=== PATIENT | female | born 1990 ===

== ENCOUNTER 2017-12-19 17:45 | Inpatient (IN) | payer SELFPAY ==
[2017-12-19 18:00] VITALS: BP 144/67; PULSE 114; RESP 20; TEMP 102.1; O2SAT 100
[2017-12-19] MEDS ORDERED: SODIUM CHLOR 0.9% 1000 ML INJ 1,000 ML IV SCH ×2 (22:24→23:35)
--- NOTE | 2017-12-19 22:27 | PD ---
HPI Chief Complaint: Abdominal Pain Time Seen by Provider: 22:18 Travel History International Travel<30 days: No Contact w/Intl Traveler<30days: No Traveled to known affect area: No History of Present Illness HPI This patient was examined in the presence of a female nurse. 26-year-old female presents for evaluation of abdominal pain. Symptoms started 5 days ago. She describes it as an aching pain in her lower abdomen which is constant, worse when walking or when having a bowel movement. She reports associated fevers, chills, nausea, dizziness when standing. She denies diarrhea, constipation, flank pain, dysuria, increased urinary frequency or hesitancy, vaginal bleeding or discharge, cough, congestion, sore throat. She is sexually active with approximately 10 new sexual partners in the past 2 months. She has no other complaints at this time. [facility] Past Medical History Medical History: Denies Significant Hx ?: Not LMP: 12/06/2017 Social History Alcohol Use: No Tobacco Use: Yes Substance Use: No Allergies-Medications (Allergen,Severity, Reaction): Coded Allergies: Sulfa (Sulfonamide Antibiotics) (Verified Allergy, Unknown, 12/19/17) Reported Meds & Prescriptions Reported Meds & Active Scripts Active No Active Prescriptions or Reported Medications Review of Systems Except as stated in HPI: all other systems reviewed are Neg Physical Exam Narrative GENERAL: Well-developed well-nourished female who is febrile and tachycardic in triage. SKIN: Warm and dry. HEAD: Atraumatic. Normocephalic. EYES: Pupils equal and round. No scleral icterus. No injection or drainage. ENT: No nasal bleeding or discharge. Mucous membranes pink and moist. NECK: Trachea midline. No JVD. CARDIOVASCULAR: Regular rate and rhythm. No murmur appreciated. RESPIRATORY: No accessory muscle use. Clear to auscultation. Breath sounds equal bilaterally. GASTROINTESTINAL: Abdomen soft, tender to palpation in bilateral lower quadrants without guarding. There is no CVA tenderness. MUSCULOSKELETAL: No obvious deformities. No clubbing. No cyanosis. No edema. NEUROLOGICAL: Awake and alert. No obvious cranial nerve deficits. Motor grossly within normal limits. Normal speech. PSYCHIATRIC: Appropriate mood and affect; insight and judgment normal. Data Data Last Documented VS Vital Signs Date Time Temp Pulse Resp B/P (MAP) Pulse Ox O2 Delivery O2 Flow Rate FiO2 12/19/17 18:00 102.1 114 20 144/67 (92) 100 Orders Orders Sepsis Workup Initiated (12/19/17 ) Complete Blood Count With Diff (12/19/17 18:03) Comprehensive Metabolic Panel (12/19/17 18:03) Lactic Acid Sepsis Protocol (12/19/17 18:03) Urinalysis - C+S If Indicated (12/19/17 18:03) Blood Culture (12/19/17 18:03) Ed Urine Pregnancytest Poc (12/19/17 22:24) Gc And Chlamydia Pcr (12/19/17 22:24) Wet Prep Profile (12/19/17 22:24) Ct Abd/Pel W Iv Contrast(Rout) (12/19/17 22:24) Iv Access Insert/Monitor (12/19/17:24) Morphine Inj (Morphine Inj) (12/19/17 22:30) Ondansetron Inj (Zofran Inj) (12/19/17 22:30) Sodium Chlor 0.9% 1000 Ml Inj (Ns 1000 M (12/19/17 22:24) Lipase (12/19/17 22:50) Acetaminophen (Tylenol) (12/19/17 23:45) Sodium Chlor 0.9% 1000 Ml Inj (Ns 1000 M (12/19/17 23:35) Urine Culture (12/19/17 23:36) Cefoxitin Inj (Mefoxin Inj) (12/20/17 00:15) Doxycycline (Vibratab) (12/20/17 00:15) Metronidazole (Flagyl) (12/20/17 00:15) Iohexol 350 Inj (Omnipaque 350 Inj) (12/20/17 00:14) Admit Order (Ed Use Only) (12/20/17 00:34) Us Pelvis Comp W Dop Transvag (12/20/17 23:10) Labs Laboratory Tests Test 12/19/17 22:50 12/19/17 23:20 12/19/17 23:36 White Blood Count 25.9 TH/MM3 Red Blood Count 4.25 MIL/MM3 Hemoglobin 13.1 GM/DL Hematocrit 38.3 % Mean Corpuscular Volume 90.1 FL Mean Corpuscular Hemoglobin 30.9 PG Mean Corpuscular Hemoglobin Concent 34.3 % Red Cell Distribution Width 13.8 % Platelet Count 319 TH/MM3 Mean Platelet Volume 7.6 FL Neutrophils (%) (Auto) 84.8 % Lymphocytes (%) (Auto) 5.6 % Monocytes (%) (Auto) 9.2 % Eosinophils (%) (Auto) 0.2 % Basophils (%) (Auto) 0.2 % Neutrophils # (Auto) 22.0 TH/MM3 Lymphocytes # (Auto) 1.4 TH/MM3 Monocytes # (Auto) 2.4 TH/MM3 Eosinophils # (Auto) 0.0 TH/MM3 Basophils # (Auto) 0.0 TH/MM3 CBC Comment AUTO DIFF Differential Total Cells Counted 100 Neutrophils % (Manual) 74 % Band Neutrophils % 7 % Lymphocytes % 7 % Monocytes % 12 % Neutrophils # (Manual) 21.0 TH/MM3 Differential Comment FINAL DIFF MANUAL Toxic Granulation 1+ Toxic Vacuolation PRESENT Platelet Estimate NORMAL Platelet Morphology Comment NORMAL Red Cell Morphology Comment NORMAL Blood Urea Nitrogen 7 MG/DL Creatinine 0.81 MG/DL Random Glucose 105 MG/DL Total Protein 8.0 GM/DL Albumin 3.6 GM/DL Calcium Level 8.9 MG/DL Alkaline Phosphatase 91 U/L Aspartate Amino Transf (AST/SGOT) 10 U/L Alanine Aminotransferase (ALT/SGPT) 20 U/L Total Bilirubin 0.6 MG/DL Sodium Level 136 MEQ/L Potassium Level 3.2 MEQ/L Chloride Level 102 MEQ/L Carbon Dioxide Level 25.1 MEQ/L Anion Gap 9 MEQ/L Estimat Glomerular Filtration Rate 86 ML/MIN Lactic Acid Level 1.5 mmol/L Lipase 67 U/L Clue Cells (Wet Prep) NONE SEEN Vaginal Trichomonas (Wet Prep) PRESENT Vaginal Yeast (Wet Prep) NONE SEEN Chlamydia trachomatis DNA (PCR) NOT DETECTED Neisseria gonorrhoeae DNA (PCR) NOT DETECTED Urine Color YELLOW Urine Turbidity CLOUDY Urine pH 6.0 Urine Specific [place] 1.032 Urine Protein 30 mg/dL Urine Glucose (UA) NEG mg/dL Urine Ketones NEG mg/dL Urine Occult Blood SMALL Urine Nitrite NEG Urine Bilirubin NEG Urine Urobilinogen 2.0 MG/DL Urine Leukocyte Esterase MOD Urine RBC 39 /hpf Urine WBC 24 /hpf Urine Squamous Epithelial Cells 15 /hpf Urine Amorphous Sediment RARE Urine Mucus MANY /lpf Microscopic Urinalysis Comment CATH-CULTURE IND MDM Medical Decision Making Medical Screen Exam Complete: Yes Emergency Medical Condition: Yes Medical Record Reviewed: Yes Differential Diagnosis Pelvic inflammatory disease, tubo-ovarian abscess, appendicitis, diverticulitis , colitis, pyelonephritis, cystitis Narrative Course Plan is for lab work, blood cultures, urinalysis, pelvic examination, CT abdomen and pelvis. She will be given IV fluids, Zofran, morphine. Pelvic examination reveals cervical motion tenderness, bilateral adnexal tenderness, mucopurulent drainage from the cervical loss consistent with pelvic inflammatory disease. The patient was given doxycycline, Flagyl, cefoxitin. 2 L of IV fluids were provided. Lab work has been reviewed. WBC count is 25.9 with 7% band neutrophils, CMP reveals a potassium of 3.2, urinalysis reveals moderate leukocytes and RBCs, significant contaminant with 15 squamous epithelial cells, wet prep is positive for trichomonas. CT abdomen and pelvis reveals CONCLUSION: 1. Greater than a centimeter low density, probably fluid, collection in the anterior right adnexa with free fluid tracking to the cecum and in the cul-de- sac and with induration of the fat about the lower peritoneum. The location suggests that this is ovarian in origin, possibly representing an abscess. The appendix is obscured by fluid tracking to the cecum and cannot assess for the presence or absence of appendicitis stop Clinical examination and history are consistent with pelvic inflammatory disease and tubo-ovarian abscess. I discussed with the on-call stationary engineer apprentice Dr. Paulino to admit the patient to her service. Discussed the results with the patient. Sepsis Criteria SIRS Criteria (2 or more): Temp > 100.9 or < 96.8, Heart rate over 90, WBC > 51559, < 4000 or > 10% bands Sepsis Criteria (SIRS+source): Infect source susp/known Diagnosis Primary Impression: Sepsis Additional Impressions: Tubo-ovarian abscess Pelvic inflammatory disease Admitting Information Admitting Physician Requests: Admit Scripts No Active Prescriptions or Reported Meds Jarod Villareal Dec 19, 2017 22:27
[2017-12-19] MEDS ORDERED: ONDANSETRON HCL 4 MG/2 ML VIAL IVP ONE (22:30)
[2017-12-19] MEDS ORDERED: MORPHINE SULFATE 4 MG/ML INJ IV PUSH ONE (22:30)
[2017-12-19 23:23] LABS: BASOPHIL % 0.2 % (0.0-2.0); EOSINOPHIL % 0.2 % (0.0-4.0); HEMATOCRIT 38.3 % (35.0-46.0); HEMOGLOBIN 13.1 GM/DL (11.6-15.3); LYMPH % 5.6 % (9.0-44.0); LYMPHOCYTE # 1.4 TH/MM3 (1.0-4.8); MEAN CELL VOLUME 90.1 FL (80.0-100.0); MEAN CORPUSCULAR HEMOGLOBIN 30.9 PG (27.0-34.0); MEAN CORPUSCULAR HGB CONC 34.3 % (32.0-36.0); MEAN PLATELET VOLUME 7.6 FL (7.0-11.0); MONO % 9.2 % (0.0-8.0); MONOCYTE # 2.4 TH/MM3 (0-0.9); NEUT % 84.8 % (16.0-70.0); PLATELET COUNT 319 TH/MM3 (150-450); RED BLOOD COUNT 4.25 MIL/MM3 (4.00-5.30); RED CELL DISTRIBUTION WIDTH 13.8 % (11.6-17.2); WHITE BLOOD COUNT 25.9 TH/MM3 (4.0-11.0)
[2017-12-19 23:28] LABS: ALBUMIN 3.6 GM/DL (3.4-5.0); AST (GOT) 10 U/L (15-37); BICARBONATE 25.1 MEQ/L (21.0-32.0); BLOOD UREA NITROGEN 7 MG/DL (7-18); CALCIUM 8.9 MG/DL (8.5-10.1); CHLORIDE 102 MEQ/L (98-107); CREATININE 0.81 MG/DL (0.50-1.00); GLOMERULAR FILTRATION RATE 86 ML/MIN (>89); GLUCOSE,RANDOM 105 MG/DL (74-106); SODIUM (NA) 136 MEQ/L (136-145)
[2017-12-19 23:29] LABS: ALT (GPT) 20 U/L (10-53)
[2017-12-19 23:31] LABS: ALKALINE PHOSPHATASE 91 U/L (45-117); TOTAL BILIRUBIN ADULT 0.6 MG/DL (0.2-1.0)
[2017-12-19] MEDS ORDERED: ACETAMINOPHEN 325 MG TAB PO ONE (23:45)
[2017-12-20 00:03] LABS: BANDS 7 % (0-6); LYMPHOCYTES 7 % (9-44); MONOCYTES 12 % (0-8); POLYS (SEG NEUTROPHILS) 74 % (16-70)
[2017-12-20 00:05] LABS: TOXIC GRANULATION 1+ (NORMAL); TOXIC VACUOLATION PRESENT (NONE SEEN)
[2017-12-20 00:08] LABS: AMORPHOUS SEDIMENT, URINE RARE; BILIRUBIN, URINE NEG (NEG); BLOOD, URINE SMALL (NEG); GLUCOSE,URINE NEG (NEG); KETONE, URINE NEG (NEG); MUCUS URINE MANY /lpf (OCC); NITRITE,URINE NEG (NEG); SQUAMOUS EPITHELIAL CELL URINE 15 /hpf (0-5); URINE COLOR YELLOW (YELLW/STRAW); URINE LEUKOCYTE ESTERASE MOD (NEG)
[2017-12-20] MEDS ORDERED: IOHEXOL 350 MG/ML 10 ML VIAL (for RAD DIAG) IVCONTRAST ONE (00:14)
[2017-12-20] MEDS ORDERED: metroNIDAZOLE 500 MG TAB PO ONE (00:15)
[2017-12-20] MEDS ORDERED: DOXYCYCLINE HYCLATE 100 MG TAB PO ONE (00:15)
[2017-12-20] MEDS ORDERED: ceFOXitin INJ 2 GM in SODIUM CHLORIDE 0.9% INJ 100 ML IV ONE (00:15)
--- NOTE | 2017-12-20 00:26 | RADRPT ---
EXAM DATE/TIME: 12/20/2017 00:05 [facility] COMPARISON: No previous studies available for comparison. INDICATIONS : Lower abdominal pain with dysuria and constipation. IV CONTRAST: 100 cc Omnipaque 350 (iohexol) IV ORAL CONTRAST: No oral contrast ingested. RADIATION DOSE: 7.37 CTDIvol (mGy) MEDICAL HISTORY : None SURGICAL HISTORY : None. ENCOUNTER: Initial ACUITY: 4 - 6 days PAIN SCALE: 9/10 LOCATION: Bilateral lower quadrant TECHNIQUE: Volumetric scanning of the abdomen and pelvis was performed. Using automated exposure control and ad justment of the mA and/or kV according to patient size, radiation dose was kept as low as reasonably achievable to obtain optimal diagnostic quality images. DICOM format image data is available electro nically for review and comparison. FINDINGS: LOWER LUNGS: The visualized lower lungs are clear. LIVER: Homogeneous density without lesion. There is no dilation of the biliary tree. No calcified gallston es. SPLEEN: Normal size without lesion. PANCREAS: Within normal limits. KIDNEYS: Normal in size and shape. There is no mass, stone or hydronephrosis. ADRENAL GLANDS: Within normal limits. VASCULAR: There is no aortic aneurysm. BOWEL/MESENTERY: The stomach, small bowel, and colon demonstrate no acute abnormality. There is no free intraperitone al air or fluid. ABDOMINAL WALL: Within normal limits. RETROPERITONEUM: There is no lymphadenopathy. BLADDER: No wall thickening or mass. REPRODUCTIVE: Abnormal. The uterus is anteverted. The right and superior of the uterus, there is a large low dens ity smooth margin lesion measuring 8.1 x [address] density of 10 Hounsfield units. This appears to be ovarian in origin. No associated calcification. No air within the fluid collection. There i s some induration of the mesenteric fat or abdomen. There is free fluid in the cul-de-sac measuring 2.7 cm. There is also some free fluid tracking into the right lower quadrant, obscuring the inferior margin of the cecum. The appendix is not identified, and may be within area of fluid. INGUINAL: There is no lymphadenopathy or hernia. MUSCULOSKELETAL: Within normal limits for patient age. CONCLUSION: 1. Greater than a centimeter low density, probably fluid, collection in the anterior right adnexa wit h free fluid tracking to the cecum and in the cul-de-sac and with induration of the fat about the low er peritoneum. The location suggests that this is ovarian in origin, possibly representing an absces s. The appendix is obscured by fluid tracking to the cecum and cannot assess for the presence or abs ence of appendicitis stop Mike Duran MD on December 20, 2017 at 0:19 Board Certified Radiologist. This report was verified electronically.
[2017-12-20] MEDS ORDERED: ONDANSETRON ODT 4 MG TAB PO PRN (00:45)
[2017-12-20] MEDS ORDERED: SODIUM CHLORIDE 0.9% FLUSH 10 ML FLUSH IV FLUSH PRN (00:45)
[2017-12-20] MEDS ORDERED: ACETAMINOPHEN 325 MG TAB PO PRN (00:45)
[2017-12-20] MEDS ORDERED: IBUPROFEN 600 MG TAB PO PRN (00:45)
--- NOTE | 2017-12-20 01:20 | RADRPT ---
EXAM DATE/TIME: 12/20/2017 00:27 [facility] COMPARISON: CT ABDOMEN & PELVIS W CONTRAST, December 20, 2017, 0:05. INDICATIONS : Pelvic pain, evaluate for abscess. MEDICAL HISTORY : Pelvic pain. SURGICAL HISTORY : None. ENCOUNTER: Initial ACUITY: 1 day PAIN SCORE: 3/10 LOCATION: Bilateral pelvis MEASUREMENTS: UTERUS: 9.2 x 5.6 x 3.4 cm ENDOMETRIAL STRIPE: 8 mm RIGHT OVARY: 9.8 x 9.7 x 8.4 cm LEFT OVARY: 4.0 x 3.0 x 2.2 cm FINDINGS: UTERUS: The myometrium has homogeneous echotexture without mass. The endometrial stripe has a homogeneous ech otexture. RIGHT OVARY: There is a dominant cystic structure measuring 7.8 x 7.4 cm which appears to be ovarian in origin. T here are homogeneous low level specular echoes within. On color Doppler there is some mild flow abou t the periphery anteriorly. There is some free fluid tracking about the right adnexa. LEFT OVARY: Ovary contains no mass or significant cystic lesion. MISCELLANEOUS: No free fluid in the cul-de-sac. CONCLUSION: 1. Dominant cystic abnormality in the right adnexa appears to be ovarian in origin and measures in ex cess of 7.8 cm. There is some mild flow about the periphery. Differential considerations include a large ovarian cyst and adnexal abscess. 2. There is free fluid about the right adnexa. No free fluid in the cul-de-sac. The left adnexa is grossly unremarkable. Mike Duran MD on December 20, 2017 at 1:15 Board Certified Radiologist. This report was verified electronically.
[2017-12-20] MEDS: SODIUM CHLOR 0.45% 1000 ML INJ 1,000 ML IV SCH ×2 (02:08→17:56)
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
[2017-12-20] MEDS ORDERED: ZOLPIDEM TARTRATE 5 MG TAB PO PRN (02:15)
[2017-12-20 02:20] VITALS: BP 116/61; PULSE 91; RESP 18; TEMP 100.1; O2SAT 98
[2017-12-20 02:38] LABS: MAGNESIUM 1.8 MG/DL (1.5-2.5)
[2017-12-20] MEDS ORDERED: DOXYCYCLINE INJ 100 MG in SODIUM CHLORIDE 0.9% INJ 100 ML IV SCH (03:00)
[2017-12-20] MEDS: metroNIDAZOLE 500 MG INJ 100 ML IV SCH ×4 (03:01→17:59)
[2017-12-20] MEDS: POTASSIUM CHLOR 20 MEQ PREMIX 100 ML IV SCH ×2 (03:54→06:08)
[2017-12-20 04:54] VITALS: BP 118/58; PULSE 96; RESP 16; O2SAT 98
[2017-12-20] MEDS ORDERED: SODIUM CHLORIDE 0.9% 100 ML BAG ONE ×5 (06:00→18:00)
[2017-12-20] MEDS: SODIUM CHLORIDE 0.9% FLUSH 10 ML FLUSH IV FLUSH SCH ×2 (09:00→22:06)
[2017-12-20] MEDS: ceFOXitin INJ 2,000 GM in SODIUM CHLORIDE 0.9% INJ 100 ML IV SCH ×4 (09:09→23:11)
[2017-12-20 10:06] LABS: RPR SCREEN FOR REFLEX NON-REACTIVE (NON-REACTVE)
[2017-12-20 11:08] VITALS: PULSE 96; RESP 15; TEMP 100.6; O2SAT 97
[2017-12-20 11:28] LABS: INTERNATIONAL NORMALIZED RATIO 1.1 RATIO; PROTHROMBIN TIME - PATIENT 11.1 SEC (9.8-11.6)
[2017-12-20] MEDS: ONDANSETRON HCL 4 MG/2 ML VIAL IV PUSH PRN (12:26)
[2017-12-20] MEDS: MORPHINE SULFATE 4 MG/ML INJ IV PUSH PRN ×2 (12:26→14:28)
[2017-12-20] MEDS ORDERED: MIDAZOLAM HCL 2 MG/2 ML VIAL ONE ×2 (12:46→13:19)
--- NOTE | 2017-12-20 15:27 | RADRPT ---
EXAM DATE/TIME: 12/20/2017 13:08 [place] COMPARISON: No previous studies available for comparison. INDICATIONS : Tubo-ovarian abscess. SEDATION TIME: 30 MEDICATION(S): 1.) 3 mg midazolam (Versed) IV 2.) 150 mcg fentanyl (Sublimaze) IV DEVICE(S): 1.) 8 Fr Skater FLUID: Total volume of 300 cc of cloudy, yellow fluid was removed. Fluid was sent for laboratory ordered studies. MEDICAL HISTORY : None. SURGICAL HISTORY : None. ENCOUNTER: Initial ACUITY: 1 day PAIN SCORE: 0/10 LOCATION: pelvis PROCEDURE: 1.) Conscious sedation with continuous EKG and oximetry monitoring. PROCEDURE : 1. CT guided drainage of the right tubo-ovarian abscess 2. Conscious sedation with continuous EKG and oximetry monitoring. The risks, benefits and alternatives to the procedure were explained and verbal and written consent w as obtained. Using automated exposure control and adjustment of the mA and/or kV according to patient size, radiation dose was kept as low as reasonably achievable to obtain optimal diagnostic quality i mages. The site was prepped in sterile fashion. Full sterile technique was used, including cap, ma sk, sterile gloves and gown and a large sterile sheet. Hand hygiene and 2% chlorhexidine and/or beta dine/alcohol prep was utilized per protocol for cutaneous antisepsis. The skin and subcutaneous tiss ues were infiltrated with local anesthetic solution. DICOM format image data is available electronic ally for review and comparison. Using CT guidance the prescribed site was localized. Drainage was performed using the prescribed cat heter The patient tolerated the procedure well and there were no complications. Conscious sedation was per formed with the prescribed dosages and duration as above in the presence of an independent trained ra diology nurse to assist in the monitoring of the patient. EKG and oximetry remained stable throughou t the procedure. The patient tolerated the procedure well and there were no complications. The patient was sent to pos t anesthesia recovery in stable condition. CONCLUSION: Uncomplicated CT guided drainage. Catrachito Clark MD on December 20, 2017 at 15:24 Board Certified Radiologist. This report was verified electronically.
[2017-12-20 18:58] VITALS: BP 119/69; PULSE 100; RESP 16; TEMP 102.2; O2SAT 96
[2017-12-20] MEDS: ACETAMINOPHEN/HYDROcodone 325 MG/5 MG TAB PO PRN (23:09)
[2017-12-20] MEDS: DOXYCYCLINE HYCLATE 100 MG TAB PO SCH (23:27)
[2017-12-21] VITALS: BP 121/69; PULSE 78; RESP 18; TEMP 98; O2SAT 98
[2017-12-21] MEDS: metroNIDAZOLE 500 MG INJ 100 ML IV SCH ×3 (01:20→18:01)
[2017-12-21] MEDS: MORPHINE SULFATE 4 MG/ML INJ IV PUSH PRN (03:53)
[2017-12-21] MEDS: ONDANSETRON HCL 4 MG/2 ML VIAL IV PUSH PRN (03:56)
[2017-12-21 04:00] VITALS: BP 112/63; PULSE 80; RESP 18; TEMP 99.2; O2SAT 97
[2017-12-21] MEDS ORDERED: SODIUM CHLORIDE 0.9% 100 ML BAG ONE ×4 (06:00→18:00)
[2017-12-21] MEDS: ceFOXitin INJ 2,000 GM in SODIUM CHLORIDE 0.9% INJ 100 ML IV SCH ×4 (06:24→23:05)
[2017-12-21] MEDS: SODIUM CHLOR 0.45% 1000 ML INJ 1,000 ML IV SCH ×2 (06:26→18:01)
[2017-12-21 07:58] LABS: BASOPHIL % 0.2 % (0.0-2.0); EOSINOPHIL # 0.1 TH/MM3 (0-0.4); EOSINOPHIL % 0.7 % (0.0-4.0); HEMATOCRIT 31.3 % (35.0-46.0); HEMOGLOBIN 10.6 GM/DL (11.6-15.3); LYMPH % 10.7 % (9.0-44.0); LYMPHOCYTE # 1.7 TH/MM3 (1.0-4.8); MEAN CELL VOLUME 90.6 FL (80.0-100.0); MEAN CORPUSCULAR HEMOGLOBIN 30.6 PG (27.0-34.0); MEAN CORPUSCULAR HGB CONC 33.8 % (32.0-36.0); MEAN PLATELET VOLUME 7.2 FL (7.0-11.0); MONO % 7.1 % (0.0-8.0); MONOCYTE # 1.1 TH/MM3 (0-0.9); NEUT % 81.3 % (16.0-70.0); PLATELET COUNT 251 TH/MM3 (150-450); RED BLOOD COUNT 3.46 MIL/MM3 (4.00-5.30); RED CELL DISTRIBUTION WIDTH 13.4 % (11.6-17.2)
[2017-12-21 08:00] VITALS: BP_SYST 111; BP_SYST 119; BP_DIAS 64; BP_DIAS 66; PULSE 72; PULSE 82; RESP 18; TEMP 98.9; TEMP 99.7; O2SAT 97; O2SAT 98
[2017-12-21 08:18] LABS: BICARBONATE 24.5 MEQ/L (21.0-32.0); CALCIUM 8.2 MG/DL (8.5-10.1); CREATININE 0.83 MG/DL (0.50-1.00)
--- NOTE | 2017-12-21 08:40 | HHI.PR ---
Subjective Remarks Hospital day 2 36 hours in to IV antibiotic therapy of Mefoxin/doxycycline/ Flagyl , T-max-102.2 at 7 PM last night Patient has less pressure in the abdomen and pelvis after drainage by interventional radiology yesterday of 300 cc of pus, however she still has she describes intense pain when she moves she is not too bad just laying in bed but when she moves or goes to the bathroom and tries to ambulate has a lot of pain which is worse instead of better, she still has an indwelling drain that this morning at 150 cc of a yellow serous fluid Objective Vital Signs Date Time Temp Pulse Resp B/P (MAP) Pulse Ox O2 Delivery O2 Flow Rate FiO2 12/21/17 04:00 99.2 80 18 112/63 (79) 97 12/21/17 03:58 18 12/21/17 00:00 98.0 78 18 121/69 (86) 98 12/20/17 18:58 102.2 100 16 119/69 (86) 96 12/20/17 11:08 100.6 96 15 97 Room Air I/O 12/20/17 12/20/17 12/20/17 12/21/17 12/21/17 12/21/17 07:00 15:00 23:00 07:00 15:00 23:00 Intake Total 1200 ml 340 ml 120 ml Output Total 500 ml 400 ml Balance 1200 ml -160 ml -280 ml Intake Oral 240 ml 120 ml IV Total 1200 ml 100 ml Output Urine Total 300 ml 400 ml Drainage Total 200 ml # Bowel Movements 0 0 Cardiovascular exam within normal limits Lungs clear Abdomen is flat with decreased bowel sounds 2+ tender to palpation in the lower quadrants no rebound pain Result Diagram: 12/21/17 0710 12/21/17 0710 Imaging Interventional radiology was able to drain 300 cc from the tubo-ovarian abscess and indwelling catheter still draining this morning noted 150 cc. Procedures Drainage of tubo-ovarian abscess per interventional radiology Medications and IVs IV antibiotics broad-spectrum IV fluid Assessment and Plan Assessment and Plan Right tubo-ovarian abscess drained by interventional radiology Continued abdominal pelvic pain , also with febrile illness last night the temperature of 102.2 at 7 PM Plan--continue IV antibiotics and percutaneous drainage of abscess, and anticipate improvement the patient's overall status within the next 24-36 hours Ritchie Curtis II, MD Dec 21, 2017 08:40
[2017-12-21] MEDS: SODIUM CHLORIDE 0.9% FLUSH 10 ML FLUSH IV FLUSH SCH ×2 (11:22→21:00)
[2017-12-21] MEDS: ACETAMINOPHEN/HYDROcodone 325 MG/5 MG TAB PO PRN ×2 (11:22→18:07)
[2017-12-21 12:00] VITALS: BP 127/63; PULSE 91; RESP 20; TEMP 100; O2SAT 98
[2017-12-21] MEDS: DOXYCYCLINE HYCLATE 100 MG TAB PO SCH ×2 (14:57→21:24)
[2017-12-21 16:00] VITALS: BP 120/61; PULSE 76; RESP 18; TEMP 98.4; O2SAT 98
[2017-12-21 20:00] VITALS: BP 124/61; PULSE 99; RESP 17; TEMP 97.7; O2SAT 99
[2017-12-22] VITALS (8 sets, daily range): BP systolic 109–131; BP diastolic 55–69; PULSE 72–88; RESP 14–18; TEMP 96.7–99.5; O2SAT 98–100
[2017-12-22] MEDS: metroNIDAZOLE 500 MG INJ 100 ML IV SCH ×4 (01:10→23:56)
[2017-12-22] MEDS: ceFOXitin INJ 2,000 GM in SODIUM CHLORIDE 0.9% INJ 100 ML IV SCH ×4 (05:02→23:56)
[2017-12-22] MEDS: SODIUM CHLOR 0.45% 1000 ML INJ 1,000 ML IV SCH ×3 (05:03→22:44)
[2017-12-22] MEDS: ACETAMINOPHEN/HYDROcodone 325 MG/5 MG TAB PO PRN (05:03)
[2017-12-22 05:12] LABS: AUTOMATED NEUTROPHIL # 10.6 TH/MM3 (1.8-7.7); BASOPHIL % 0.1 % (0.0-2.0); EOSINOPHIL # 0.2 TH/MM3 (0-0.4); EOSINOPHIL % 1.4 % (0.0-4.0); HEMOGLOBIN 10.5 GM/DL (11.6-15.3); LYMPH % 11.8 % (9.0-44.0); LYMPHOCYTE # 1.6 TH/MM3 (1.0-4.8); MEAN CELL VOLUME 91.1 FL (80.0-100.0); MEAN CORPUSCULAR HGB CONC 34.1 % (32.0-36.0); MEAN PLATELET VOLUME 7.4 FL (7.0-11.0); MONO % 9.2 % (0.0-8.0); MONOCYTE # 1.3 TH/MM3 (0-0.9); NEUT % 77.5 % (16.0-70.0); PLATELET COUNT 261 TH/MM3 (150-450); RED CELL DISTRIBUTION WIDTH 13.3 % (11.6-17.2); WHITE BLOOD COUNT 13.7 TH/MM3 (4.0-11.0)
[2017-12-22] MEDS ORDERED: SODIUM CHLORIDE 0.9% 100 ML BAG ONE ×4 (06:00→18:00)
--- NOTE | 2017-12-22 09:11 | HHI.PR ---
Subjective Remarks Patient is feeling better this morning. No fever overnight. She still has suprapubic pain but is much improved. She has been able to eat and drink without issues and is looking forward to breakfast. Objective - Vital Signs Date Time Temp Pulse Resp B/P (MAP) Pulse Ox O2 Delivery O2 Flow Rate FiO2 12/22/17 04:00 99.4 88 15 115/65 (82) 99 12/22/17 00:00 Room Air Result Diagram: 12/22/17 0440 12/21/17 0710 Other Results Last 72 hours Impressions Abdomen/Pelvis/Transvag US 12/20/17 2310 Signed Impressions: Service Date/Time: Wednesday, December 20, 2017 00:27 - CONCLUSION: 1. Dominant cystic abnormality in the right adnexa appears to be ovarian in origin and measures in excess of 7.8 cm. There is some mild flow about the periphery. Differential considerations include a large ovarian cyst and adnexal abscess. 2. There is free fluid about the right adnexa. No free fluid in the cul-de-sac. The left adnexa is grossly unremarkable. Mike Duran MD Abscess Drainage CT 12/20/17 1228 Signed Impressions: Service Date/Time: Wednesday, December 20, 2017 13:08 - CONCLUSION: Uncomplicated CT guided drainage. Catrachito Clark MD Abdomen/Pelvis CT 12/19/17 2224 Signed Impressions: Service Date/Time: Wednesday, December 20, 2017 00:05 - CONCLUSION: 1. Greater than a centimeter low density, probably fluid, collection in the anterior right adnexa with free fluid tracking to the cecum and in the cul-de-sac and with induration of the fat about the lower peritoneum. The location suggests that this is ovarian in origin, possibly representing an abscess. The appendix is obscured by fluid tracking to the cecum and cannot assess for the presence or absence of appendicitis stop Mike Duran MD Objective Remarks GENERAL: Well-nourished, well-developed patient. SKIN: Warm and dry. HEAD: Normocephalic and atraumatic. EYES: No scleral icterus. No injection or drainage. CARDIOVASCULAR: Regular rate and rhythm without murmurs, gallops, or rubs. RESPIRATORY: Breath sounds equal bilaterally. No accessory muscle use. ABDOMEN/GI: Abdomen soft, tender to palpation especially in the area around the drain, bowel sounds present, no rebound, no guarding. Accordian drain in place EXTREMITIES: No cyanosis or edema. No signs of DVT BACK: Nontender without obvious deformity. NEUROLOGICAL: Awake and alert. Motor and sensory grossly within normal limits. Grossly normal Five out of 5 muscle strength in all muscle groups. Normal speech. Psychiatric: Grossly normal memory and affect Medications and IVs Active Medications Cefoxitin Sodium 2000 gm/Sodium Chloride 100 ml @ 200 mls/hr Q6H IV Last administered on 12/22/17at 05:02; Admin Dose 200 MLS/HR; Start 12/22/17 at 00:00 A/P Problem List: (1) Tubo-ovarian abscess ICD Code: N70.93 - Salpingitis and oophoritis, unspecified Status: Acute Assessment & Plan: -Afebrile overnight, Tmax 99.4F -WBC down to 13.7 from 25.9 on admission -Continue IV cefotixin, flagyl, and PO doxycycline -Blood cultures negative to date -Wound cultures negative -HIV, HepB, RPR, GC, Chlamydia negative -Positive trichomonas - currently on flagyl -IR drained 300cc of purulent material -Accordian drain in place, draining straw-colored fluid, 200 ml overnight (2) FEN Assessment & Plan: Fluids: NS at 100ml/hr E: Will monitor and replace as needed N: Regular adult diet Assessment and Plan 26F admitted for a right tuboovarian abscess. Discharge Planning Patient needs another day of IV antibiotics. Will possibly discharge home tomorrow. Agatha Schroeder MD Dec 22, 2017 09:11
[2017-12-22] MEDS: SODIUM CHLORIDE 0.9% FLUSH 10 ML FLUSH IV FLUSH SCH ×2 (09:49→21:14)
[2017-12-22] MEDS: DOXYCYCLINE HYCLATE 100 MG TAB PO SCH ×2 (09:49→21:13)
[2017-12-23] MEDS: ceFOXitin INJ 2,000 GM in SODIUM CHLORIDE 0.9% INJ 100 ML IV SCH (05:58)
[2017-12-23] MEDS ORDERED: SODIUM CHLORIDE 0.9% 100 ML BAG ONE ×2 (06:00)
[2017-12-23 08:00] VITALS: BP 123/68; PULSE 68; RESP 20; TEMP 99.2; O2SAT 99
[2017-12-23] MEDS: SODIUM CHLORIDE 0.9% FLUSH 10 ML FLUSH IV FLUSH SCH ×2 (08:10→20:22)
[2017-12-23] MEDS: metroNIDAZOLE 500 MG INJ 100 ML IV SCH (08:10)
[2017-12-23] MEDS: DOXYCYCLINE HYCLATE 100 MG TAB PO SCH (08:10)
[2017-12-23] MEDS: SODIUM CHLOR 0.45% 1000 ML INJ 1,000 ML IV SCH ×2 (08:12→17:17)
[2017-12-23] MEDS ORDERED: LEVA500T33 PO (08:42)
[2017-12-23] MEDS ORDERED: METR-1 PO (08:42)
[2017-12-23] MEDS ORDERED: HYDR-3516 PO (08:42)
--- NOTE | 2017-12-23 10:05 | HHI.PR ---
Subjective Remarks Patient is feeling better this morning. No fever overnight. She continues to have suprapubic pain but it is much improved. She has been able to eat and drink without issues. She understands the importance of taking the antibiotics prescribed and scheduling a [employer] follow-up appointment upon discharge. Objective - Vital Signs Date Time Temp Pulse Resp B/P (MAP) Pulse Ox O2 Delivery O2 Flow Rate FiO2 12/23/17 08:00 99.2 68 20 123/68 (86) 99 12/22/17 00:00 Room Air Result Diagram: 12/22/17 0440 12/21/17 0710 Other Results Last 72 hours Impressions Abdomen/Pelvis/Transvag US 12/20/17 2310 Signed Impressions: Service Date/Time: Wednesday, December 20, 2017 00:27 - CONCLUSION: 1. Dominant cystic abnormality in the right adnexa appears to be ovarian in origin and measures in excess of 7.8 cm. There is some mild flow about the periphery. Differential considerations include a large ovarian cyst and adnexal abscess. 2. There is free fluid about the right adnexa. No free fluid in the cul-de-sac. The left adnexa is grossly unremarkable. Mike Duran MD Abscess Drainage CT 12/20/17 1228 Signed Impressions: Service Date/Time: Wednesday, December 20, 2017 13:08 - CONCLUSION: Uncomplicated CT guided drainage. Catrachito Clark MD Objective Remarks GENERAL: Well-nourished, well-developed patient. SKIN: Warm and dry. HEAD: Normocephalic and atraumatic. EYES: No scleral icterus. No injection or drainage. CARDIOVASCULAR: Regular rate and rhythm without murmurs, gallops, or rubs. RESPIRATORY: Breath sounds equal bilaterally. No accessory muscle use. ABDOMEN/GI: Positive bowel sounds. Abdomen soft but tender to palpation in the area around drain. No rebound, no guarding. EXTREMITIES: No cyanosis or edema. No signs of DVT NEUROLOGICAL: Awake and alert. Motor and sensory grossly within normal limits. Five out of 5 muscle strength in all muscle groups. Normal speech. PSYCHIATRIC: Grossly normal memory and affect. Medications and IVs Current Medications Medications (Trade) Dose Ordered Sig/Myra Route Start Time Stop Time Status Last Admin Sodium Chloride 1,000 ml @ 100 mls/hr Q10H IV 12/20/17 00:44 12/23/17 08:12 (NS Flush) 2 ml UNSCH PRN IV FLUSH 12/20/17 00:45 12/20/17 09:10 (NS Flush) 2 ml BID IV FLUSH 12/20/17 09:00 12/22/17 21:14 Metronidazole 100 ml @ 100 mls/hr Q8H IV 12/20/17 01:00 12/23/17 08:10 (Tylenol) 650 mg Q6H PRN PO 12/20/17 00:45 12/20/17 18:59 (Motrin) 600 mg Q4H PRN PO 12/20/17 00:45 12/22/17 11:27 ([place] 5-325 Mg) 1 tab Q4H PRN PO 12/20/17 00:45 12/22/17 05:03 (Morphine Inj) 4 mg Q2H PRN IV PUSH 12/20/17 00:45 12/21/17 03:53 (Zofran Odt) 4 mg Q6H PRN PO 12/20/17 00:45 (Zofran Inj) 4 mg Q6H PRN IV PUSH 12/20/17 00:45 12/21/17 03:56 (Ambien) 5 mg HS PRN PO 12/20/17 02:15 12/22/17 21:14 (Vibratab) 100 mg Q12HR PO 12/20/17 21:00 12/23/17 08:10 Cefoxitin Sodium 2000 gm/Sodium Chloride 100 ml @ 200 mls/hr Q6H IV 12/22/17 00:00 12/23/17 05:58 A/P Problem List: (1) Tubo-ovarian abscess ICD Code: N70.93 - Salpingitis and oophoritis, unspecified Status: Acute Assessment & Plan: - Afebrile overnight, Tmax 99.2 F. - WBC down to 13.7 from 25.9 on admission. - Blood cultures negative to date. - Wound cultures negative. - HIV, HepB, RPR, GC, Chlamydia negative. - Positive trichomonas. - Drain in place, draining straw-colored fluid, 100 ml overnight. - Transition to Levaquin 500mg PO q24hr and Flagyl 500mg PO q8hr today. - Discharge on Levaquin 500mg PO daily and Flagyl 500mg PO BID x11 days. - Schedule follow-up with Dr. Carson. (2) FEN Status: Acute Assessment & Plan: Fluids: * Tolerating PO. Electrolyte: * Monitor and replete as necessary. Nutrition: * Regular adult diet. Assessment and Plan Patient is a 26 year old P0 030 who presented to the ED with a 5 day history of a constant achy abdominal pain in her lower abdomen. She was found to have a tubo-ovarian abscess, which was drained and treated with a course of IV antibiotics. Drain remains in place. Transitioned to PO medications today. dw OB attending Maite Hale MD R1 Dec 23, 2017 10:05
--- NOTE | 2017-12-23 10:10 | HHI.DCPOC ---
Discharge Care Plan Diagnosis: (1) Tubo-ovarian abscess Your Health Problems Are: Abdominal pain Incisions/drains Report Symptoms to Your Doctor -Temperature above 100.5 degrees -Redness, of incision or excessive or foul smelling drainage -Unusual pain or calf pain -Increased vaginal bleeding -Painful or difficulty urinating -Feelings of extreme sadness or anxiety after 2 weeks Goals to Promote Your Health * To prevent worsening of your condition and complications * To maintain your health at the optimal level Directions to Meet Your Goals Take your medications as prescribed Follow your dietary instruction Follow activity as directed Ensure plenty of rest for recovery Drink fluids for hydration Keep your appointments as scheduled Take your immunizations and boosters as scheduled If your symptoms worsen call your PCP, if no PCP go to Urgent Care Center or Emergency Room Smoking is Dangerous to Your Health. Avoid second hand smoke Call the 24-hour crisis hotline for domestic abuse at Maite Hale MD R1 Dec 23, 2017 10:10
[2017-12-23] MEDS: LEVOFLOXACIN 500 MG TAB PO SCH (11:31)
[2017-12-23 12:00] VITALS: BP 128/72; PULSE 75; RESP 20; TEMP 99.1; O2SAT 98
[2017-12-23] MEDS: metroNIDAZOLE 500 MG TAB PO SCH ×2 (13:29→20:22)
[2017-12-23 14:32] LABS: AUTOMATED NEUTROPHIL # 8.2 TH/MM3 (1.8-7.7); BASOPHIL % 0.2 % (0.0-2.0); EOSINOPHIL # 0.2 TH/MM3 (0-0.4); EOSINOPHIL % 1.7 % (0.0-4.0); HEMATOCRIT 32.9 % (35.0-46.0); HEMOGLOBIN 11.5 GM/DL (11.6-15.3); LYMPHOCYTE # 1.8 TH/MM3 (1.0-4.8); MEAN CELL VOLUME 91.6 FL (80.0-100.0); MEAN PLATELET VOLUME 7.3 FL (7.0-11.0); MONO % 9.5 % (0.0-8.0); MONOCYTE # 1.1 TH/MM3 (0-0.9); NEUT % 72.6 % (16.0-70.0); PLATELET COUNT 340 TH/MM3 (150-450); RED BLOOD COUNT 3.59 MIL/MM3 (4.00-5.30); RED CELL DISTRIBUTION WIDTH 13.7 % (11.6-17.2); WHITE BLOOD COUNT 11.3 TH/MM3 (4.0-11.0)
[2017-12-23 15:00] LABS: BICARBONATE 28.6 MEQ/L (21.0-32.0); CALCIUM 8.9 MG/DL (8.5-10.1); CREATININE 0.58 MG/DL (0.50-1.00)
[2017-12-23 16:00] VITALS: BP 116/73; PULSE 62; RESP 18; TEMP 98.2; O2SAT 98
[2017-12-23 20:00] VITALS: BP 140/65; PULSE 85; RESP 16; TEMP 99.5; O2SAT 100
[2017-12-24] VITALS: BP 127/60; PULSE 76; RESP 16; TEMP 98.8; O2SAT 98
[2017-12-24] MEDS: SODIUM CHLOR 0.45% 1000 ML INJ 1,000 ML IV SCH (04:44)
[2017-12-24] MEDS: metroNIDAZOLE 500 MG TAB PO SCH ×2 (05:46→12:48)
[2017-12-24 08:00] VITALS: BP 120/60; PULSE 68; RESP 20; TEMP 98.5; O2SAT 98
[2017-12-24] MEDS: SODIUM CHLORIDE 0.9% FLUSH 10 ML FLUSH IV FLUSH SCH (08:51)
--- NOTE | 2017-12-24 09:46 | HHI.PR ---
Subjective Remarks Patient seen and examined this morning. No acute events overnight. Minimal pain , well controlled. Tolerating PO. No nausea/vomiting. Taking oral antibiotics without issues. Denies any fever/chills, nausea/vomiting, chest pain, SOB, leg pain. Objective - Vital Signs Date Time Temp Pulse Resp B/P (MAP) Pulse Ox O2 Delivery O2 Flow Rate FiO2 12/24/17 00:00 98.8 76 16 127/60 (82) 98 12/22/17 00:00 Room Air Result Diagram: 12/23/17 1403 12/23/17 1403 Objective Remarks GENERAL: Well-nourished, well-developed patient. SKIN: Warm and dry. CARDIOVASCULAR: Regular rate and rhythm without murmurs, gallops, or rubs. RESPIRATORY: Breath sounds equal bilaterally. No accessory muscle use. ABDOMEN/GI: Positive bowel sounds. Abdomen soft but tender to palpation in the area around drain. No rebound, no guarding. Incision clear/dry/intact EXTREMITIES: No cyanosis or edema. No signs of DVT NEUROLOGICAL: Awake and alert. Motor and sensory grossly within normal limits. Normal speech. PSYCHIATRIC: Grossly normal memory and affect. A/P Problem List: (1) Tubo-ovarian abscess ICD Code: N70.93 - Salpingitis and oophoritis, unspecified Status: Acute Assessment & Plan: Afebrile overnight, vitals stable Blood cultures negative to date. Wound cultures negative. HIV, HepB, RPR, GC, Chlamydia negative. Positive trichomonas. - Drain in place, draining straw-colored fluid, 10 ml overnight. - Continue Levaquin 500mg PO q24hr and Flagyl 500mg PO q8hr - Discharge on Levaquin 500mg PO daily and Flagyl 500mg PO BID x11 days. - Schedule follow-up with Dr. Carson. (2) FEN Status: Acute Assessment & Plan: Fluids: * Tolerating PO. Electrolyte: * Monitor and replete as necessary. Nutrition: * Regular adult diet. Discharge Planning Once drain is pulled by IR, can be d/c with PO antibiotics Geovanni Anthony MD Dec 24, 2017 09:46
[2017-12-24 12:00] VITALS: BP 126/62; PULSE 66; RESP 20; TEMP 99; O2SAT 98
[2017-12-24] MEDS: LEVOFLOXACIN 500 MG TAB PO SCH (12:48)
== END 2017-12-24 15:00 | disposition home or self-care (01) | DRG 759 ==
LOC: NED 17:45 → NEDA 12-20 00:36 → NEDH 12-20 05:41 → HOCA 12-20 17:15 → HOCB 12-20 17:51 → HOCA 12-20 17:53
PROVIDERS: ADMIT Obstetrics & Gynecology; ATTEND Obstetrics & Gynecology
PROC: 0U9 Female Reproductive System, Drainage (ICD-10-PCS; principal; 2017-12-20)
PROC: 0U9 Female Reproductive System, Drainage (ICD-10-PCS; 2017-12-20)
DX: N70.93 Salpingitis and oophoritis, unspecified (principal); A59.9 Trichomoniasis, unspecified; Z72.0 Tobacco use; E87.6 Hypokalemia; Z82.49 Family history of ischemic heart disease and other diseases of the circulatory system
CPT/HCPCS: 74177; 75989; 76830; 76856; 80048; 80053; 81001; 83605; 83690; 83735; 84702; 84703; 85007; 85025; 85027; 85610; 85730; 86592; 86703; 87040; 87070; 87086; 87205; 87210; 87340; 87491; 87591; 93975; 96361; 96374; 96375; C1769; J0694; J2250; J2270; J2405; J3010; J3480; J7030; Q9967

== ENCOUNTER 2017-12-25 11:59 | Emergency (ER) | payer SELFPAY ==
[~2017-12-25] VITALS: Ht 175.3 cm; Wt 87.0 kg
[~2017-12-25 11:59] MED LIST: HYDR-3516 PO; LEVA500T33 PO; METR-1 PO
[2017-12-25 13:07] VITALS: BP 135/62; PULSE 85; RESP 19; TEMP 98.3; O2SAT 100
[2017-12-25 14:47] LABS: AUTOMATED NEUTROPHIL # 10.3 TH/MM3 (1.8-7.7); BASOPHIL % 0.1 % (0.0-2.0); EOSINOPHIL # 0.1 TH/MM3 (0-0.4); EOSINOPHIL % 0.9 % (0.0-4.0); HEMATOCRIT 36.5 % (35.0-46.0); LYMPH % 14.3 % (9.0-44.0); LYMPHOCYTE # 1.9 TH/MM3 (1.0-4.8); MEAN CORPUSCULAR HEMOGLOBIN 32.5 PG (27.0-34.0); MEAN CORPUSCULAR HGB CONC 35.7 % (32.0-36.0); MEAN PLATELET VOLUME 7.2 FL (7.0-11.0); MONO % 6.6 % (0.0-8.0); MONOCYTE # 0.9 TH/MM3 (0-0.9); NEUT % 78.1 % (16.0-70.0); PLATELET COUNT 480 TH/MM3 (150-450); RED BLOOD COUNT 4.01 MIL/MM3 (4.00-5.30); RED CELL DISTRIBUTION WIDTH 13.1 % (11.6-17.2); WHITE BLOOD COUNT 13.2 TH/MM3 (4.0-11.0)
[2017-12-25 14:57] LABS: AMORPHOUS SEDIMENT, URINE RARE; BILIRUBIN, URINE NEG (NEG); BLOOD, URINE MOD (NEG); GLUCOSE,URINE NEG (NEG); KETONE, URINE NEG (NEG); MUCUS URINE FEW /lpf (OCC); NITRITE,URINE NEG (NEG); SQUAMOUS EPITHELIAL CELL URINE 26 /hpf (0-5); URINE COLOR YELLOW (YELLW/STRAW); URINE LEUKOCYTE ESTERASE LARGE (NEG)
[2017-12-25 14:59] LABS: BICARBONATE 30.3 MEQ/L (21.0-32.0); CALCIUM 9.4 MG/DL (8.5-10.1); CREATININE 0.74 MG/DL (0.50-1.00)
--- NOTE | 2017-12-25 16:42 | PD ---
HPI Chief Complaint: Medical Clearance Time Seen by Provider: 15:34 Travel History International Travel<30 days: No Contact w/Intl Traveler<30days: No Traveled to known affect area: No History of Present Illness HPI Patient is a 26 year old female who comes in to have her drain removed. She was here for a TOA and had a drain placed by IR. Per notes from her admission, she was ready for discharge, but was awaiting drain removal. She says she left AMA because she was tired of waiting for someone to remove the drain. She has no complaints today. She has both antibiotics at home she was prescribed. She says she needs a work note. She denies abdominal pain, nausea, vomiting, fever or chills. Severity is mild. PFSH Past Medical History ?: Not LMP: 11/29/17 Social History Alcohol Use: No Tobacco Use: Yes Substance Use: No Allergies-Medications (Allergen,Severity, Reaction): Coded Allergies: Sulfa (Sulfonamide Antibiotics) (Verified Allergy, Unknown, 12/19/17) Reported Meds & Prescriptions Reported Meds & Active Scripts Active Hydrocodone-Acetamin 5-325 mg (Hydrocodone/Acetaminophen) 5 Mg-325 Mg Tablet 1 Tab PO Q4H PRN Flagyl (Metronidazole) 500 Mg Tab 500 Mg PO BID Levaquin (Levofloxacin) 500 Mg Tablet 500 Mg PO DAILY Review of Systems General / Constitutional: No: Fever, Chills HENT: No: Headaches, Lightheadedness Cardiovascular: No: Chest Pain or Discomfort Respiratory: No: Shortness of Breath Gastrointestinal: No: Nausea, Vomiting, Abdominal Pain Musculoskeletal: No: Myalgias Skin: No Rash, No Change in Pigmentation Neurologic: No: Weakness, Dizziness Physical Exam Narrative GENERAL: Awake and alert, in no acute distress. SKIN: Focused skin assessment warm/dry. No wounds or signs of infection. HEAD: Atraumatic. Normocephalic. EYES: Pupils equal and round. No scleral icterus. ENT: Mucous membranes pink and moist. CARDIOVASCULAR: Regular rate and rhythm. No murmur appreciated. RESPIRATORY: No accessory muscle use. Clear to auscultation. Breath sounds equal bilaterally. GASTROINTESTINAL: Abdomen soft, non-tender, nondistended. No erythema or warmth around drain site. MUSCULOSKELETAL: No obvious deformities. No clubbing. No cyanosis. No edema. NEUROLOGICAL: Awake and alert. No obvious cranial nerve deficits. Motor grossly within normal limits. Normal speech. Data Data Last Documented VS Vital Signs Date Time Temp Pulse Resp B/P (MAP) Pulse Ox O2 Delivery O2 Flow Rate FiO2 12/25/17 13:07 98.3 85 19 135/62 (86) 100 Orders Orders Complete Blood Count With Diff (12/25/17 13:15) Basic Metabolic Panel (Bmp) (12/25/17 13:15) Urinalysis - C+S If Indicated (12/25/17 13:15) Invasive Rad Dept Consult (12/25/17 ) Labs Laboratory Tests Test 12/25/17 13:34 12/25/17 13:35 12/25/17 14:43 White Blood Count 13.2 TH/MM3 Red Blood Count 4.01 MIL/MM3 Hemoglobin 13.0 GM/DL Hematocrit 36.5 % Mean Corpuscular Volume 91.0 FL Mean Corpuscular Hemoglobin 32.5 PG Mean Corpuscular Hemoglobin Concent 35.7 % Red Cell Distribution Width 13.1 % Platelet Count 480 TH/MM3 Mean Platelet Volume 7.2 FL Neutrophils (%) (Auto) 78.1 % Lymphocytes (%) (Auto) 14.3 % Monocytes (%) (Auto) 6.6 % Eosinophils (%) (Auto) 0.9 % Basophils (%) (Auto) 0.1 % Neutrophils # (Auto) 10.3 TH/MM3 Lymphocytes # (Auto) 1.9 TH/MM3 Monocytes # (Auto) 0.9 TH/MM3 Eosinophils # (Auto) 0.1 TH/MM3 Basophils # (Auto) 0.0 TH/MM3 CBC Comment DIFF FINAL Differential Comment Blood Urea Nitrogen 10 MG/DL Creatinine 0.74 MG/DL Random Glucose 96 MG/DL Calcium Level 9.4 MG/DL Sodium Level 139 MEQ/L Potassium Level 3.6 MEQ/L Chloride Level 102 MEQ/L Carbon Dioxide Level 30.3 MEQ/L Anion Gap 7 MEQ/L Estimat Glomerular Filtration Rate 96 ML/MIN Urine Color YELLOW Urine Turbidity CLOUDY Urine pH 8.0 Urine Specific [place] 1.028 Urine Protein 30 mg/dL Urine Glucose (UA) NEG mg/dL Urine Ketones NEG mg/dL Urine Occult Blood MOD Urine Nitrite NEG Urine Bilirubin NEG Urine Urobilinogen LESS THAN 2.0 MG/DL Urine Leukocyte Esterase LARGE Urine RBC 5 /hpf Urine WBC 8 /hpf Urine Squamous Epithelial Cells 26 /hpf Urine Amorphous Sediment RARE Urine Mucus FEW /lpf Microscopic Urinalysis Comment CULT NOT INDICATED MDM Medical Decision Making Medical Screen Exam Complete: Yes Emergency Medical Condition: Yes Medical Record Reviewed: Yes Differential Diagnosis drain removal vs TOA vs pain control Narrative Course Patient is a 26-year-old female who comes in to have heard drain removed. She has no complaints at this time. IR consulted for drain removal. Drain removed without incident. Site bandaged. She is advised to continue her antibiotics as prescribed. Advised to return any time for any worsening symptoms. Advised to follow-up with gynecology. Diagnosis Primary Impression: Change or removal of drains Patient Instructions: General Instructions, Ovarian Abscess (ED) Additional Instructions: Follow-up with a binder fixer. Keep her wound clean and dry. Take all of your antibiotics. Return to the ED as needed for any worsening symptoms. Disposition: 01 DISCHARGE HOME Condition: Stable Lizz Grimaldo MD Dec 25, 2017 16:42
--- NOTE | 2017-12-27 15:43 | RADRPT ---
EXAM DATE/TIME: 12/25/2017 00:00 [facility] COMPARISON: No previous studies available for comparison. INDICATIONS : Removal of drain cath DEVICE(S): 1.) Gauze dressing PROCEDURE : <<The drain was placed December 20. The patient left AMA he now returns requesting drain removal. There is relatively low output. The drain was removed.> CONCLUSION: Drainage catheter removal as detailed above. Mike Cui Jr., MD on December 27, 2017 at 15:39 Board Certified Radiologist. This report was verified electronically.
== END 2017-12-25 17:09 | disposition home or self-care (01) ==
LOC: NEDAMB 11:59
DX: Z48.03 Encounter for change or removal of drains (principal)
CPT/HCPCS: 80048; 81001; 85025; 99283